=== PATIENT | female | born 1990 | race Caucasian/White ===

== ENCOUNTER 2019-05-13 17:58 | Emergency (ER) | payer MEDICAID ==
[~2019-05-13] VITALS: Ht 154.9 cm; Wt 83.9 kg
[2019-05-13 18:06] VITALS: Ht 154.9 cm; Wt 83.9 kg
[2019-05-13 20:57] VITALS: BP 107/65
== END 2019-05-13 20:57 | disposition home or self-care (01) ==
LOC: ED 17:58
DX: O26.892 Other specified pregnancy related conditions, second trimester (principal); R10.30 Lower abdominal pain, unspecified; Z3A.20 20 weeks gestation of pregnancy; Z98.890 Other specified postprocedural states

== ENCOUNTER 2019-10-31 18:48 | Emergency (ER) | payer MEDICAID ==
[~2019-10-31] VITALS: Ht 154.9 cm; Wt 79.8 kg
[2019-10-31 18:53] VITALS: Ht 154.9 cm; Wt 79.8 kg
[2019-10-31 19:11] LABS: BASOPHIL % 0.8 % (0-2); RED CELL DISTRIBUTION WIDTH 14.6 % (11.5-14.5)
[2019-10-31 19:12] LABS: PLATELET COUNT 487 x10^3mcL (130-400)
[2019-10-31 19:28] LABS: CALCIUM 9.3 mg/dL (8.5-10.1); CARBON DIOXIDE 22.4 mmol/L (21-32); CHLORIDE SERUM 105 mmol/L (98-107); CREATININE SERUM 0.8 mg/dL (0.6-1.0); GFR1 > 60 mL/min; GLUCOSE SERUM 89 mg/dL (74-106); POTASSIUM SERUM 3.8 mmol/L (3.5-5.1); SODIUM SERUM 142 mmol/L (136-145)
[2019-10-31 19:32] LABS: ALBUMIN 3.8 g/dL (3.4-5.0); ALKALINE PHOSPHATASE 153 U/L (46-116); ALT/SGPT 73 U/L (14-59); AST/SGOT 36 U/L (15-37); BILIRUBIN TOTAL 0.3 mg/dL (0.20-1.00); LIPASE 160 IU/L (73-393)
[2019-10-31 19:33] LABS: TOTAL PROTEIN, SERUM 8.7 g/dL (6.4-8.2)
[2019-10-31 22:35] VITALS: BP 99/59
== END 2019-10-31 22:35 | disposition home or self-care (01) ==
LOC: ED 18:48
DX: K80.70 Calculus of gallbladder and bile duct without cholecystitis without obstruction (principal); Z98.890 Other specified postprocedural states
CPT/HCPCS: J1885; J2405; J3010; J7030; Q0092